=== PATIENT | male | born 1955 | race Hispanic/Latino ===

== ENCOUNTER 2024-06-04 06:07 | Day surgery (SDC) | payer OTHER, MEDICARE ==
[2024-05-31 10:43] VITALS: BP 149/82; PULSE 71; RESP 13; TEMP 98.6
[2024-06-04] VITALS (16 sets, daily range): BP systolic 142–162; BP diastolic 59–89; PULSE 60–69; RESP 15–18; TEMP 97.1–98.4
[~2024-06-04] VITALS: Ht 170.2 cm; Wt 79.3 kg
[~2024-06-04 06:07] MED LIST: MVI PO; ROSU20TA98 PO; SILD100T PO
[2024-06-04] MEDS: ceFAZolin SODIUM 2 GM VIAL ONE (07:04)
[2024-06-04] MEDS: LACTATED RINGERS 1000ML 1,000 ML IV ONE (07:05)
[2024-06-04] MEDS ORDERED: dexaMETHasone SOD PHOSPHATE 10MG/ML 1ML VIAL ONE (07:40)
[2024-06-04] MEDS ORDERED: LIDOCAINE PF 100MG/5ML (2%) SYRINGE 5ML ONE (07:40)
[2024-06-04] MEDS ORDERED: rocuRONium bROMide 10MG/1ML 5ML VL ONE (07:41)
[2024-06-04] MEDS ORDERED: proPOFol 10 MG/ML 20ML VIAL IV ONE (07:41)
[2024-06-04] MEDS ORDERED: NEOSTIGMINE METHYLSULFATE 1MG/ML IV ONE (07:41)
[2024-06-04] MEDS ORDERED: FENTanyl CITRate PF 50 MCG/1 ML 2ML VIAL ONE (07:41)
[2024-06-04] MEDS ORDERED: GLYCOPYRROLATE 0.2 MG/ML 5 ML VIAL ONE (07:41)
[2024-06-04] MEDS ORDERED: ondanSETRON 4MG INJ ONE (07:41)
[2024-06-04] MEDS: BUPIvacaine/PF 0.5% 30ML VIAL ONE (08:25)
[2024-06-04] MEDS ORDERED: ePHEDrine SULFate 50 MG/ML AMPULE ONE (08:35)
--- NOTE | 2024-06-04 09:17 | OP ---
Operative Note: DATE OF PROCEDURE: 06/04/24 SURGEON: JOEL VILLALTA MD CIRCUIT BOARD REPAIR TECHNICIAN: [] ANESTHESIA: [] General ANESTHESIOLOGIST/LOAN INSPECTOR: [] PREOPERATIVE DIAGNOSIS: [] Recurrent right inguinal hernia POSTOPERATIVE DIAGNOSIS: [] The same SYNOPSIS: [] Patient had three surgeries for hernia before. Two bilateral open surgeries and one laparoscopic surgery. He had recurrence in the right side PROCEDURE: [] Open right inguinal hernia repair ESTIMATED BLOOD LOSS: [] INDICATIONS: [] DESCRIPTION OF PROCEDURE: [] Minimal with the patient prepped and draped in usual fashion a new right groin incision was done. Using blunt and cautery dissection I was able to expose the external oblique and it was opened. Using blunt technique I was able to find the a spermatic cord. This was with a lot of scar tissue around it. After clearing the spermatic cord well I was able to see a hernia in to the internal ring. There was a lump in the right groin there was not a hernia we was more collection of fat. I placed then a keyhole mesh and anchored to the inguinal ligament and to the conjoined tendon with a 2-0 Prolene continuous. I created a new internal ring. After this was done adequate anesthesia and approximated subcu with a 2-0 Vicryl. I did a and no other layer of 3-0 Vicryl in the superficial subQ and skin was closed with 4-0 Monocryl and Steri-Strips. The patient was stable during the whole procedure no specimen was found and we placed 20 cc of local anesthesia JOEL VILLALTA MD Jun 04, 2024 09:17
[2024-06-04] MEDS: MEPERIDINE-PF 25 MG/ML SYG ONE (09:50)
== END 2024-06-04 11:03 | disposition home or self-care (01) ==
LOC: DAH 06:07
PROVIDERS: ATTEND Surgery
DX: K40.31 Unilateral inguinal hernia, with obstruction, without gangrene, recurrent (principal); E78.5 Hyperlipidemia, unspecified; I10 Essential (primary) hypertension; E66.9 Obesity, unspecified; Z79.899 Other long term (current) drug therapy; Z87.19 Personal history of other diseases of the digestive system; Z68.27 Body mass index [BMI] 27.0-27.9, adult
CPT/HCPCS: 49520; A4223 ×2; A4600; A6260; A4663; J7030; J7120 ×2; A4344; J3010; J1100; J3490 ×3; J2003; J2704; J2405; J2710; J0665; J2175; J0690; C1781; A4215; A4213; A4222; A4221; A4216; A4450